=== PATIENT | female | born 2000 | race Caucasian/White ===

== ENCOUNTER 2021-11-24 17:07 | Emergency (ER) | payer BC, MEDICAID ==
[2021-11-24] MEDS ORDERED: Activated Charcoal/Sorbitol Susp 50 GM/240 ML Bottle PO ONE (17:22)
[2021-11-24] MEDS ORDERED: Sodium Chloride 0.9% 10 ML Syringe FLUSH PRN (17:23)
[2021-11-24] MEDS ORDERED: Sodium Chloride 0.9% 1,000 ML IV SCH (17:30)
[2021-11-24 18:05] LABS: BARBITURATE SCREEN,URINE NEGATIVE (NEGATIVE); BENZODIAZEPINES SCREEN,URINE NEGATIVE (NEGATIVE); BUPRENORPHINE SCREEN,URINE NEGATIVE (NEGATIVE); METHAMPHETAMINE SCREEN, URINE NEGATIVE (NEGATIVE); THC SCREEN,URINE 50 NG/ML NEGATIVE (NEGATIVE)
[2021-11-24 18:09] LABS: ACETAMINOPHEN 191 ug/ml (10-30); CHLORIDE,CL 105 mmol/L (98-107); SODIUM,NA 139 mmol/L (136-145)
[2021-11-24 18:13] LABS: ANION GAP 16.4 mmol/L (5-15); ESTIMATED GFR 93 mL/min (>=60)
[2021-11-24 18:38] VITALS: PULSE 77
[2021-11-24] MEDS ORDERED: Ondansetron 4 MG/2 ML SDV IVPUSH ONE (20:23)
[2021-11-25 03:35] VITALS: BP 103/51
== END 2021-11-24 22:25 | disposition home or self-care (01) ==
LOC: VM.ED 17:07
DX: T39.1X2A Poisoning by 4-Aminophenol derivatives, intentional self-harm, initial encounter (principal); E66.9 Obesity, unspecified; Z68.30 Body mass index [BMI] 30.0-30.9, adult; Z88.0 Allergy status to penicillin; Z91.018 Allergy to other foods; Z88.6 Allergy status to analgesic agent; Z79.899 Other long term (current) drug therapy; Z90.49 Acquired absence of other specified parts of digestive tract
CPT/HCPCS: 36415; 80053; 80143; 80305; 80307; 81001; 81025; 83735; 84100; 84443; 84484; 85025; 85610; 85730; 86140; 87086; 93005; 96361; 96374; 99285; J2405; J7030; 93010

== ENCOUNTER 2021-12-01 20:11 | Emergency (ER) | payer BC, MEDICAID ==
[2021-12-01] MEDS ORDERED: Sodium Chloride 0.9% 10 ML Syringe FLUSH PRN (20:55)
[2021-12-01 21:29] LABS: CHLORIDE,CL 107 mmol/L (98-107); SODIUM,NA 143 mmol/L (136-145)
[2021-12-01 21:33] LABS: ESTIMATED GFR 73 mL/min (>=60)
[2021-12-01] MEDS: Sodium Chloride 0.9% 1,000 ML IV ONE (21:35)
[2021-12-01 21:45] LABS: BARBITURATE SCREEN,URINE NEGATIVE (NEGATIVE); BENZODIAZEPINES SCREEN,URINE POSITIVE (NEGATIVE); METHAMPHETAMINE SCREEN, URINE NEGATIVE (NEGATIVE); THC SCREEN,URINE 50 NG/ML NEGATIVE (NEGATIVE)
[2021-12-01] MEDS: Activated Charcoal/Water Susp 25 GM/120 ML Tube PO ONE (21:45)
[2021-12-01 21:46] LABS: BUPRENORPHINE SCREEN,URINE NEGATIVE (NEGATIVE)
[2021-12-02 00:13] VITALS: PULSE 83
[2021-12-02 00:38] VITALS: BP 102/55
== END 2021-12-01 22:54 | disposition home or self-care (01) ==
LOC: VM.ED 20:11
DX: T48.1X2A Poisoning by skeletal muscle relaxants [neuromuscular blocking agents], intentional self-harm, initial encounter (principal); E87.6 Hypokalemia; E66.9 Obesity, unspecified; Z68.30 Body mass index [BMI] 30.0-30.9, adult; Z88.0 Allergy status to penicillin; Z91.018 Allergy to other foods
CPT/HCPCS: 36415; 80053; 80305; 80307; 83605; 85025; 96360; 99284; J7030

== ENCOUNTER 2022-02-15 18:13 | Emergency (ER) | payer BC, MEDICAID ==
[2022-02-15] MEDS ORDERED: Pantoprazole 40 MG Tab.CR PO ONE (18:37)
[2022-02-15 19:11] VITALS: BP 120/72; PULSE 65
[2022-02-15 19:36] LABS: CHLORIDE,CL 107 mmol/L (98-107); SODIUM,NA 142 mmol/L (136-145)
[2022-02-15 19:41] LABS: ACETAMINOPHEN 0 ug/ml (10-30); ANION GAP 13.5 mmol/L (5-15); ESTIMATED GFR 73 mL/min (>=60)
[2022-02-15] MEDS ORDERED: Ondansetron 4 MG Tab.DIS PO ONE (22:08)
[2022-02-15 22:52] LABS: CHLORIDE,CL 107 mmol/L (98-107); SODIUM,NA 142 mmol/L (136-145)
[2022-02-15 22:53] LABS: ANION GAP 14.5 mmol/L (5-15); ESTIMATED GFR 73 mL/min (>=60)
== END 2022-02-15 22:57 | disposition home or self-care (01) ==
LOC: VM.ED 18:13
DX: T39.312A Poisoning by propionic acid derivatives, intentional self-harm, initial encounter (principal); R11.2 Nausea with vomiting, unspecified; E66.9 Obesity, unspecified; Z68.30 Body mass index [BMI] 30.0-30.9, adult
CPT/HCPCS: 36415; 80048; 80143; 99284; A9270

== ENCOUNTER 2022-02-17 19:46 | Emergency (ER) | payer BC, MEDICAID ==
[2022-02-17 21:20] LABS: CHLORIDE,CL 107 mmol/L (98-107); SODIUM,NA 143 mmol/L (136-145)
[2022-02-17 21:24] LABS: ANION GAP 12.6 mmol/L (5-15); ESTIMATED GFR 73 mL/min (>=60)
[2022-02-17 21:25] LABS: ACETAMINOPHEN 0 ug/ml (10-30)
[2022-02-17 23:17] VITALS: PULSE 70
[2022-02-17 23:18] VITALS: BP 117/74
== END 2022-02-17 23:03 | disposition home or self-care (01) ==
LOC: VM.ED 19:46
DX: T45.0X2A Poisoning by antiallergic and antiemetic drugs, intentional self-harm, initial encounter (principal); J45.909 Unspecified asthma, uncomplicated; E66.9 Obesity, unspecified; Z68.30 Body mass index [BMI] 30.0-30.9, adult; Z88.0 Allergy status to penicillin; Z91.018 Allergy to other foods; Z88.6 Allergy status to analgesic agent; Z79.899 Other long term (current) drug therapy; Z90.49 Acquired absence of other specified parts of digestive tract
CPT/HCPCS: 36415; 80053; 80143; 82550; 85025; 85610; 93005; 99284

== ENCOUNTER 2022-02-23 21:51 | Emergency (ER) | payer BC, MEDICAID ==
[2022-02-23 22:47] LABS: ACETAMINOPHEN 33 ug/ml (10-30); CHLORIDE,CL 107 mmol/L (98-107); SODIUM,NA 143 mmol/L (136-145)
[2022-02-23] MEDS ORDERED: Activated Charcoal/Water Susp 25 GM/120 ML Tube PO ONE (22:53)
[2022-02-23 22:55] LABS: ANION GAP 11.4 mmol/L (5-15); ESTIMATED GFR 82 mL/min (>=60)
[2022-02-24 01:49] VITALS: BP 103/70; PULSE 74
== END 2022-02-24 02:08 ==
LOC: VM.ED 21:51
DX: T39.1X2A Poisoning by 4-Aminophenol derivatives, intentional self-harm, initial encounter (principal); J45.909 Unspecified asthma, uncomplicated; D64.9 Anemia, unspecified; E66.9 Obesity, unspecified; Z68.41 Body mass index [BMI] 40.0-44.9, adult; Z88.0 Allergy status to penicillin; Z91.018 Allergy to other foods; Z88.6 Allergy status to analgesic agent; Z79.899 Other long term (current) drug therapy
CPT/HCPCS: 36415; 80053; 80143; 80179; 80307; 85025; 99284

== ENCOUNTER 2022-06-15 05:21 | Emergency (ER) | payer BC, MEDICAID ==
[2022-06-15 06:16] LABS: ANION GAP 10.6 mmol/L (5-15)
[2022-06-15] MEDS ORDERED: Ondansetron 4 MG/2 ML SDV IVPUSH ONE (06:19)
[2022-06-15] MEDS ORDERED: Sodium Chloride 0.9% 1,000 ML IV ONE (06:20)
[2022-06-15 10:20] LABS: BENZODIAZEPINES SCREEN,URINE POSITIVE (NEGATIVE)
[2022-06-15 10:21] LABS: BARBITURATE SCREEN,URINE NEGATIVE (NEGATIVE); BUPRENORPHINE SCREEN,URINE NEGATIVE (NEGATIVE); METHAMPHETAMINE SCREEN, URINE NEGATIVE (NEGATIVE); THC SCREEN,URINE 50 NG/ML NEGATIVE (NEGATIVE)
[2022-06-15 12:04] VITALS: BP 122/62; PULSE 64
== END 2022-06-15 12:16 ==
LOC: VM.ED 05:21
DX: T39.1X2A Poisoning by 4-Aminophenol derivatives, intentional self-harm, initial encounter (principal); E66.9 Obesity, unspecified; Z88.0 Allergy status to penicillin; Z91.018 Allergy to other foods; Z88.8 Allergy status to other drugs, medicaments and biological substances; Z20.822 Contact with and (suspected) exposure to COVID-19; Z68.43 Body mass index [BMI] 50.0-59.9, adult
CPT/HCPCS: 36415; 80053; 80143; 80179; 80305-QW; 81003; 85025; 86140; 93010; 96361; 96374; 99284; 99285-25; J2405; J7030; U0002

== ENCOUNTER 2022-07-13 05:00 | Emergency (ER) | payer BC, MEDICAID ==
[2022-07-13] MEDS ORDERED: Ketorolac 30 MG/ML SDV IM ONE (05:32)
[2022-07-13] MEDS ORDERED: Orphenadrine 60 MG/2 ML Inj IM ONE (05:32)
[2022-07-13 05:35] VITALS: BP 141/82; PULSE 100
== END 2022-07-13 06:35 | disposition home or self-care (01) ==
LOC: VM.ED 05:00
DX: M54.50 Low back pain, unspecified (principal); J45.909 Unspecified asthma, uncomplicated; E66.9 Obesity, unspecified; Z68.42 Body mass index [BMI] 45.0-49.9, adult; Z88.0 Allergy status to penicillin; Z88.6 Allergy status to analgesic agent; Z91.018 Allergy to other foods; Z79.899 Other long term (current) drug therapy
CPT/HCPCS: 96372; 99283; J1885; J2360

== ENCOUNTER 2022-07-13 15:44 | Emergency (ER) | payer BC, MEDICAID ==
[2022-07-13] MEDS ORDERED: Sodium Chloride 0.9% 1,000 ML IV ONE (16:01)
[2022-07-13] MEDS ORDERED: Flumazenil 0.1 MG/ML 5 ML MDV IVPUSH ONE ×3 (16:03→16:34)
[2022-07-13] MEDS ORDERED: Naloxone 0.4 MG/ML SDV IVPUSH ONE (16:03)
[2022-07-13 16:30] LABS: CHLORIDE,CL 104 mmol/L (98-107); SODIUM,NA 143 mmol/L (136-145)
[2022-07-13 16:36] LABS: ANION GAP 13.1 mmol/L (5-15); ESTIMATED GFR 73 mL/min (>=60)
[2022-07-13 16:47] VITALS: BP 132/79; PULSE 88
[2022-07-13 17:01] LABS: ACETAMINOPHEN 0 ug/ml (10-30)
[2022-07-13 17:15] LABS: BARBITURATE SCREEN,URINE NEGATIVE (NEGATIVE); BENZODIAZEPINES SCREEN,URINE NEGATIVE (NEGATIVE); BUPRENORPHINE SCREEN,URINE NEGATIVE (NEGATIVE); METHAMPHETAMINE SCREEN, URINE NEGATIVE (NEGATIVE); THC SCREEN,URINE 50 NG/ML NEGATIVE (NEGATIVE)
== END 2022-07-13 20:27 | disposition short-term general hospital (02) ==
LOC: VM.ED 15:44
DX: T50.991A Poisoning by other drugs, medicaments and biological substances, accidental (unintentional), initial encounter (principal); E66.9 Obesity, unspecified; Z88.0 Allergy status to penicillin; Z88.8 Allergy status to other drugs, medicaments and biological substances; J45.909 Unspecified asthma, uncomplicated; Z68.42 Body mass index [BMI] 45.0-49.9, adult; Z88.6 Allergy status to analgesic agent; Z91.018 Allergy to other foods; Z79.899 Other long term (current) drug therapy
CPT/HCPCS: 80053; 80143; 80179; 80305; 80307; 81001; 85025; 86140; 87086; 96361; 96372; 96374; 99283; 99284; 99285; J1885; J2310; J2360; J3490; J7030

== ENCOUNTER 2022-07-19 20:57 | Emergency (ER) | payer BC, MEDICAID ==
[2022-07-19 22:26] LABS: ANION GAP 10.9 mmol/L (5-15)
[2022-07-19 23:31] VITALS: BP 154/72; PULSE 88
== END 2022-07-19 23:11 | disposition home or self-care (01) ==
LOC: VM.ED 20:57
DX: R07.89 Other chest pain (principal); R06.02 Shortness of breath; E66.9 Obesity, unspecified; Z68.43 Body mass index [BMI] 50.0-59.9, adult; Z88.0 Allergy status to penicillin; Z91.018 Allergy to other foods; Z88.8 Allergy status to other drugs, medicaments and biological substances
CPT/HCPCS: 36415; 71046; 80053; 85025; 93005; 93010; 99283; 99285

== ENCOUNTER 2022-10-19 00:56 | Observation (INO) | payer BC, MEDICAID ==
[2022-10-19 01:37] LABS: BASOPHILS PERCENT AUTO 0.1 % (0.2-1.2); EOSINOPHILS ABSOLUTE AUTO 0.1 x10^3/uL (0.0-0.5); EOSINOPHILS PERCENT AUTO 1.2 % (0.0-4.0); HEMATOCRIT 36.4 % (33.0-47.0); HEMOGLOBIN 12.6 g/dL (12.0-16.0); IMMATURE GRAN ABSOLUTE AUTO 0.01 x10^3/uL (0.00-0.07); LYMPHOCYTES PERCENT AUTO 41.3 % (25.0-50.0); MEAN CORPUSCULAR HEMOGLOBIN 28.1 pg (26.0-32.0); MEAN CORPUSCULAR HGB CONC 34.6 g/dL (32.0-36.0); MEAN CORPUSCULAR VOLUME 81.1 fL (78.0-93.0); MONOCYTES ABSOLUTE AUTO 0.5 x10^3/uL (0.0-0.8); MONOCYTES PERCENT AUTO 6.9 % (2.0-11.0); NEUTROPHILS ABSOLUTE AUTO 3.7 x10^3/uL (1.8-7.7); NEUTROPHILS PERCENT AUTO 50.4 % (50.0-80.0); PLATELET COUNT,PLT 348 x10^3/uL (130-400); RED BLOOD CELL COUNT 4.49 x10^6/uL (4.00-5.50); WHITE BLOOD CELL COUNT,WBC 7.4 x10^3/uL (4.0-10.0)
[2022-10-19 02:06] LABS: A/G RATIO 0.92; ALBUMIN 3.6 g/dL (3.4-5.0); BILIRUBIN TOTAL 0.2 mg/dL (0.2-1.0); C-REACTIVE PROTEIN 2.8 mg/dL (<=0.9); CALCIUM 8.7 mg/dL (8.5-10.1); CREATININE 0.8 mg/dL (0.55-1.02); EST CRCL DRUG DOSING (CG) 99.25 mL/min; POTASSIUM,K 3.8 mmol/L (3.5-5.1); PROTEIN TOTAL,TP 7.5 g/dL (6.4-8.2)
[2022-10-19 02:08] LABS: ANION GAP 17.8 mmol/L (5-15)
[2022-10-19] MEDS ORDERED: Acetylcysteine 15,000 MG in Dextrose 5% in Water 200 ML IV STA ×2 (02:19)
[2022-10-19] MEDS ORDERED: Acetylcysteine 5,000 MG in Dextrose 5% in Water 500 ML IV ONE ×4 (03:11→03:30)
[2022-10-19] MEDS ORDERED: Ondansetron 4 MG/2 ML SDV IV PRN (03:19)
[2022-10-19] MEDS ORDERED: Ondansetron 4 MG Tab.DIS PO PRN (03:19)
[2022-10-19] MEDS ORDERED: Acetylcysteine 10,000 MG in Dextrose 5% in Water 1,000 ML IV ONE ×2 (08:00)
[2022-10-19 08:33] LABS: A/G RATIO 0.78; ACETAMINOPHEN 8 ug/ml (10-30); ALANINE AMINOTRANSFERASE,ALT 25 U/L (14-59); ALBUMIN 3.2 g/dL (3.4-5.0); ALKALINE PHOSPHATASE 93 U/L (46-116); ASPARTATE AMNIOTRANSFERASE,AST 15 U/L (15-37); BILIRUBIN TOTAL 0.3 mg/dL (0.2-1.0); PROTEIN TOTAL,TP 7.3 g/dL (6.4-8.2)
[2022-10-19 08:34] LABS: BILIRUBIN DIRECT < 0.05 mg/dL (0.00-0.20); BILIRUBIN INDIRECT 0.25001
[2022-10-19] MEDS ORDERED: Menthol 10%/Methyl Salicylate 15% 85 GM Tube TOP PRN (14:48)
[2022-10-19] MEDS: Ketorolac 10 MG Tab PO PRN (20:01)
[2022-10-19 20:02] LABS: BASOPHILS PERCENT AUTO 0.3 % (0.2-1.2); EOSINOPHILS ABSOLUTE AUTO 0.1 x10^3/uL (0.0-0.5); EOSINOPHILS PERCENT AUTO 0.8 % (0.0-4.0); HEMATOCRIT 39.5 % (33.0-47.0); HEMOGLOBIN 13.3 g/dL (12.0-16.0); IMMATURE GRAN ABSOLUTE AUTO 0.01 x10^3/uL (0.00-0.07); LYMPHOCYTES ABSOLUTE AUTO 2.4 x10^3/uL (1.0-4.8); LYMPHOCYTES PERCENT AUTO 37.3 % (25.0-50.0); MEAN CORPUSCULAR HEMOGLOBIN 27.6 pg (26.0-32.0); MEAN CORPUSCULAR HGB CONC 33.7 g/dL (32.0-36.0); MONOCYTES ABSOLUTE AUTO 0.5 x10^3/uL (0.0-0.8); MONOCYTES PERCENT AUTO 7.7 % (2.0-11.0); NEUTROPHILS ABSOLUTE AUTO 3.4 x10^3/uL (1.8-7.7); NEUTROPHILS PERCENT AUTO 53.7 % (50.0-80.0); PLATELET COUNT,PLT 382 x10^3/uL (130-400); RED BLOOD CELL COUNT 4.82 x10^6/uL (4.00-5.50); WHITE BLOOD CELL COUNT,WBC 6.3 x10^3/uL (4.0-10.0)
[2022-10-19 20:14] LABS: PROTHROMBIN TIME 10.8 SEC (9.5-12.2)
[2022-10-19 20:19] LABS: A/G RATIO 0.85; ALBUMIN 3.3 g/dL (3.4-5.0); BILIRUBIN TOTAL 0.1 mg/dL (0.2-1.0); CREATININE 0.8 mg/dL (0.55-1.02); EST CRCL DRUG DOSING (CG) 99.25 mL/min; PROTEIN TOTAL,TP 7.2 g/dL (6.4-8.2)
[2022-10-20] MEDS: Ketorolac 10 MG Tab PO PRN (06:21)
[2022-10-20 06:24] VITALS: PULSE 91
[2022-10-20 09:25] VITALS: BP 151/73
== END 2022-10-20 09:59 | disposition home or self-care (01) ==
LOC: VM.ED 00:56 → VM.MS 03:11 → UNDOADMOB 03:11
PROVIDERS: ADMIT Physician Assistant Medical; ATTEND Physician Assistant Medical
DX: T39.1X1A Poisoning by 4-Aminophenol derivatives, accidental (unintentional), initial encounter (principal); M79.7 Fibromyalgia; G89.29 Other chronic pain; G43.909 Migraine, unspecified, not intractable, without status migrainosus; F32.A Depression, unspecified; F41.0 Panic disorder [episodic paroxysmal anxiety]; F43.10 Post-traumatic stress disorder, unspecified; E66.9 Obesity, unspecified; Z88.8 Allergy status to other drugs, medicaments and biological substances; Z88.0 Allergy status to penicillin; Z79.899 Other long term (current) drug therapy; Z79.1 Long term (current) use of non-steroidal anti-inflammatories (NSAID); Z90.49 Acquired absence of other specified parts of digestive tract; Z98.890 Other specified postprocedural states; Z68.32 Body mass index [BMI] 32.0-32.9, adult
CPT/HCPCS: 36415; 80053; 80076; 80143; 83690; 85025; 85610; 86140; 96365; 96366; 96376; 99223; 99238; 99285; A9270-GY; G0378; J0132; J7060

== ENCOUNTER 2023-04-29 10:58 | Emergency (ER) | payer BC, MEDICAID ==
[2023-04-29] MEDS: Diphtheria,Pertussis(Acell),Tetanus Vaccine 0.5 ML Syringe IM ONE (11:18)
[2023-04-29 15:11] VITALS: BP 116/60; PULSE 61
== END 2023-04-29 11:19 | disposition home or self-care (01) ==
LOC: VM.ED 10:58
DX: S61.212A Laceration without foreign body of right middle finger without damage to nail, initial encounter (principal); J45.909 Unspecified asthma, uncomplicated; E66.9 Obesity, unspecified; Z79.899 Other long term (current) drug therapy; Z88.0 Allergy status to penicillin; Z88.6 Allergy status to analgesic agent; Z91.018 Allergy to other foods; Z23 Encounter for immunization; W26.0XXA Contact with knife, initial encounter
CPT/HCPCS: 90471; 90715; 99283; 99283-25

== ENCOUNTER 2023-09-25 21:49 | Emergency (ER) | payer BC, MEDICAID ==
[2023-09-25] MEDS ORDERED: Sodium Chloride 0.9% 10 ML Syringe FLUSH PRN (21:59)
[2023-09-25 22:04] VITALS: BP 132/74; PULSE 81
[2023-09-25] MEDS: Lactated Ringers 1,000 ML IV ONE (22:21)
[2023-09-25] MEDS: Prochlorperazine 10 MG/2 ML SDV IV ONE (22:21)
[2023-09-25 22:24] LABS: BASOPHILS PERCENT AUTO 0.3 % (0.2-1.2); EOSINOPHILS ABSOLUTE AUTO 0.1 x10^3/uL (0.0-0.5); EOSINOPHILS PERCENT AUTO 0.6 % (0.0-4.0); HEMATOCRIT 38.3 % (33.0-47.0); HEMOGLOBIN 12.9 g/dL (12.0-16.0); IMMATURE GRAN ABSOLUTE AUTO 0.01 x10^3/uL (0.00-0.07); LYMPHOCYTES ABSOLUTE AUTO 2.7 x10^3/uL (1.0-4.8); LYMPHOCYTES PERCENT AUTO 29.3 % (25.0-50.0); MEAN CORPUSCULAR HEMOGLOBIN 27.7 pg (26.0-32.0); MEAN CORPUSCULAR HGB CONC 33.7 g/dL (32.0-36.0); MEAN CORPUSCULAR VOLUME 82.4 fL (78.0-93.0); MONOCYTES ABSOLUTE AUTO 0.5 x10^3/uL (0.0-0.8); NEUTROPHILS ABSOLUTE AUTO 5.8 x10^3/uL (1.8-7.7); NEUTROPHILS PERCENT AUTO 63.7 % (50.0-80.0); PLATELET COUNT,PLT 318 x10^3/uL (130-400); RED BLOOD CELL COUNT 4.65 x10^6/uL (4.00-5.50)
[2023-09-25 22:26] LABS: APPEARANCE,URINE CLEAR (CLEAR); BILIRUBIN,URINE NEGATIVE (NEGATIVE); COLOR,URINE YELLOW (YELLOW); GLUCOSE,URINE NEGATIVE (NEGATIVE); KETONES,URINE NEGATIVE (NEGATIVE); LEUKOCYTE ESTERASE,URINE NEGATIVE (NEGATIVE); NITRITE,URINE NEGATIVE (NEGATIVE); OCCULT BLOOD,URINE TRACE-LYSED (NEGATIVE); PROTEIN,URINE NEGATIVE (NEGATIVE); UROBILINOGEN,URINE 0.2 EU/dL (0.2)
[2023-09-25 22:30] LABS: BACTERIA,URINE RARE /HPF (NOT SEEN); RBC,URINE 0-5 /HPF (NOT SEEN); SQUAMOUS EPITHELIAL CELLS,UR OCCASIONAL /HPF (NOT SEEN); WBC,URINE 0-5 /HPF (NOT SEEN)
[2023-09-25 22:40] LABS: A/G RATIO 0.81; ALANINE AMINOTRANSFERASE,ALT 25 U/L (14-59); ALBUMIN 3.5 g/dL (3.4-5.0); ALKALINE PHOSPHATASE 87 U/L (46-116); ANION GAP 17.9 mmol/L (5-15); ASPARTATE AMNIOTRANSFERASE,AST 19 U/L (15-37); BILIRUBIN TOTAL 0.2 mg/dL (0.2-1.0); BLOOD UREA NITROGEN,BUN 12 mg/dL (7-18); C-REACTIVE PROTEIN 1.72 mg/dL (<=0.50); CALCIUM 8.7 mg/dL (8.5-10.1); CARBON DIOXIDE,CO2 27 mmol/L (21-32); CHLORIDE,CL 101 mmol/L (98-107); CREATININE 0.9 mg/dL (0.55-1.02); ESTIMATED GFR 92 mL/min (>=60); GLUCOSE RANDOM 88 mg/dL (70-99); MAGNESIUM 1.9 mg/dL (1.8-2.4); POTASSIUM,K 3.9 mmol/L (3.5-5.1); PROTEIN TOTAL,TP 7.8 g/dL (6.4-8.2); SODIUM,NA 142 mmol/L (136-145)
[2023-09-25] MEDS: Magnesium Hydroxide 400 MG/5 ML Susp 30 ML Cup PO ONE (23:17)
== END 2023-09-25 23:22 | disposition home or self-care (01) ==
LOC: VM.ED 21:49
DX: K31.84 Gastroparesis (principal); K59.01 Slow transit constipation; J45.909 Unspecified asthma, uncomplicated; E66.9 Obesity, unspecified; Z79.899 Other long term (current) drug therapy; Z88.6 Allergy status to analgesic agent; Z88.0 Allergy status to penicillin; Z91.018 Allergy to other foods
CPT/HCPCS: 36415; 74019; 80053; 81001; 81025; 83735; 85025; 86140; 96361; 96374; 99284; 99284-25; A9270-GY; J0780; J7120

== ENCOUNTER 2024-01-13 17:50 | Emergency (ER) | payer BC, MEDICAID ==
[2024-01-13 18:19] LABS: BASOPHILS PERCENT AUTO 0.4 % (0.2-1.2); EOSINOPHILS ABSOLUTE AUTO 0.1 x10^3/uL (0.0-0.5); EOSINOPHILS PERCENT AUTO 1.6 % (0.0-4.0); HEMATOCRIT 36.2 % (33.0-47.0); HEMOGLOBIN 11.8 g/dL (12.0-16.0); IMMATURE GRAN ABSOLUTE AUTO 0.01 x10^3/uL (0.00-0.07); LYMPHOCYTES ABSOLUTE AUTO 1.9 x10^3/uL (1.0-4.8); LYMPHOCYTES PERCENT AUTO 24.8 % (25.0-50.0); MEAN CORPUSCULAR HEMOGLOBIN 27.1 pg (26.0-32.0); MEAN CORPUSCULAR HGB CONC 32.6 g/dL (32.0-36.0); MEAN CORPUSCULAR VOLUME 83.2 fL (78.0-93.0); MONOCYTES ABSOLUTE AUTO 0.5 x10^3/uL (0.0-0.8); MONOCYTES PERCENT AUTO 7.1 % (2.0-11.0); PLATELET COUNT,PLT 292 x10^3/uL (130-400); RED BLOOD CELL COUNT 4.35 x10^6/uL (4.00-5.50); WHITE BLOOD CELL COUNT,WBC 7.6 x10^3/uL (4.0-10.0)
[2024-01-13 18:39] LABS: A/G RATIO 1.24; ALANINE AMINOTRANSFERASE,ALT 19 U/L (14-59); ALBUMIN 4.1 g/dL (3.4-5.0); ALKALINE PHOSPHATASE 86 U/L (46-116); ASPARTATE AMNIOTRANSFERASE,AST 17 U/L (15-37); BILIRUBIN TOTAL 0.3 mg/dL (0.2-1.0); BLOOD UREA NITROGEN,BUN 6 mg/dL (7-18); CALCIUM 8.9 mg/dL (8.5-10.1); CARBON DIOXIDE,CO2 28 mmol/L (21-32); CHLORIDE,CL 102 mmol/L (98-107); CREATININE 0.9 mg/dL (0.55-1.02); GLUCOSE RANDOM 102 mg/dL (70-99); POTASSIUM,K 3.7 mmol/L (3.5-5.1); PROTEIN TOTAL,TP 7.4 g/dL (6.4-8.2); SODIUM,NA 140 mmol/L (136-145)
[2024-01-13 18:46] LABS: ANION GAP 13.7 mmol/L (5-15); ESTIMATED GFR 92 mL/min (>=60)
[2024-01-13] MEDS: Lactated Ringers 1,000 ML IV ONE (18:54)
[2024-01-13 20:59] VITALS: BP 141/81; PULSE 89
== END 2024-01-13 19:47 | disposition home or self-care (01) ==
LOC: VM.ED 17:50
DX: R06.02 Shortness of breath (principal); R11.2 Nausea with vomiting, unspecified; J45.909 Unspecified asthma, uncomplicated; E66.9 Obesity, unspecified; Z68.42 Body mass index [BMI] 45.0-49.9, adult; Z90.49 Acquired absence of other specified parts of digestive tract; Z79.899 Other long term (current) drug therapy; Z79.891 Long term (current) use of opiate analgesic; Z91.018 Allergy to other foods; Z88.8 Allergy status to other drugs, medicaments and biological substances
CPT/HCPCS: 36415; 80053; 85025; 96360; 99284; 99284-25; J7120

== ENCOUNTER 2024-07-19 01:10 | Emergency (ER) | payer BC, MEDICAID ==
[2024-07-19 01:36] VITALS: BP 148/81; PULSE 80
[2024-07-19] MEDS: Ibuprofen 200 MG Tab PO PRN (01:43)
[2024-07-19] MEDS: Take Home: Ondansetron 4 MG Tab.DIS, 5 Tab Pack PO ONE (01:43)
== END 2024-07-19 01:52 | disposition home or self-care (01) ==
LOC: VM.ED 01:10
DX: S00.93XA Contusion of unspecified part of head, initial encounter (principal); Z88.0 Allergy status to penicillin; Z91.048 Other nonmedicinal substance allergy status; Z88.6 Allergy status to analgesic agent; Z79.51 Long term (current) use of inhaled steroids; Z79.899 Other long term (current) drug therapy; W22.8XXA Striking against or struck by other objects, initial encounter; Y93.89 Activity, other specified
CPT/HCPCS: 99283; A9270-GY; Q0162